=== PATIENT | female | born 1990 | race Two or more races ===

== ENCOUNTER 2017-01-08 22:10 | Emergency (ER) | payer MEDICAID ==
[~2017-01-08] VITALS: Ht 165.1 cm; Wt 54.4 kg
[2017-01-08 22:10] VITALS: BP 109/71
[2017-01-08] MEDS ORDERED: ONDANSETRON HCL/PF 4 MG/2 ML VIAL IM ONE (23:30)
[2017-01-08] MEDS ORDERED: ONDANSETRON HCL/PF 4 MG/2 ML VIAL ONE (23:53)
== END 2017-01-09 00:18 | disposition home or self-care (01) ==
LOC: ER 22:16
DX: K52.9 Noninfective gastroenteritis and colitis, unspecified (principal)
CPT/HCPCS: 84703; 96372; 99283; A4606; J2405; Z7610

== ENCOUNTER 2023-12-13 20:23 | Emergency (ER) | payer MEDICAID, OTHER ==
[~2023-12-13] VITALS: Ht 162.6 cm; Wt 63.5 kg
[2023-12-13] MEDS: IV NS 0.9% 1,000 ML BAG IV ONE (22:15)
[2023-12-13] MEDS ORDERED: KETOROLAC TROMETHAMINE 15 MG/ML VIAL ONE (22:22)
[2023-12-13] MEDS ORDERED: PANTOPRAZOLE 40 MG VIAL ONE (22:23)
[2023-12-13] MEDS ORDERED: METOCLOPRAMIDE HCL 10 MG/2 ML VIAL ONE (22:23)
[2023-12-13] MEDS ORDERED: FAMOTIDINE/PF INJ 20 MG/2 ML VIAL IV ONE (22:23)
[2023-12-13 22:27] LABS: BASOPHILS # (AUTO) 0.1 K/uL (0.0-0.2); BASOPHILS % (AUTO) 0.4 % (0.0-2.0); EOSINOPHILS % (AUTO) 0.1 % (0.0-6.0); HEMATOCRIT 39 % (33-45); LYMPHOCYTES % (AUTO) 18.1 % (20.0-44.0); MEAN CORPUSCULAR HEMOGLOBIN 30 PG (26.0-33.0); MEAN CORPUSCULAR HGB CONC 34 g/dl (31.0-36.0); MEAN CORPUSCULAR VOLUME 88 fL (82-100); MONOCYTES # (AUTO) 1.2 K/uL (0.1-1.30); MONOCYTES % (AUTO) 5.6 % (2.0-12.0); NEUTROPHILS # (AUTO) 16.6 K/uL (1.8-8.9); NEUTROPHILS % (AUTO) 75.8 % (43.0-81.0); PLATELET COUNT (AUTO) 228 K/uL (150-450); RED BLOOD CELL COUNT(AUTO) 4.37 MIL/uL (4.0-5.2); RED CELL DISTRIBUTION WIDTH 14.9 % (11.5-15.0); WHITE BLOOD COUNT (AUTO) 21.8 K/uL (4.3-11.0)
[2023-12-13] MEDS: KETOROLAC TROMETHAMINE 15 MG/ML VIAL IV ONE (22:30)
[2023-12-13] MEDS: PANTOPRAZOLE 40 MG VIAL IV ONE (22:35)
[2023-12-13] MEDS: FAMOTIDINE/PF INJ 20 MG/2 ML VIAL IV ONE (22:37)
[2023-12-13 22:46] LABS: CALCIUM, SERUM 9.5 mg/dL (8.5-10.1); POTASSIUM 3.2 mmol/L (3.5-5.1)
[2023-12-13 22:52] LABS: BILIRUBIN,DIRECT 0.2 mg/dL (0.0-0.2); BILIRUBIN,TOTAL 0.7 mg/dL (0.2-1.0); TOTAL PROTEIN, SERUM 7.8 g/dL (6.4-8.2)
[2023-12-13] MEDS: METOCLOPRAMIDE HCL 10 MG/2 ML VIAL IV ONE (23:00)
[2023-12-13] MEDS: AMOX/CLAVULANATE 875 MG TABLET PO ONE (23:10)
[2023-12-13] MEDS ORDERED: AMOX/CLAVULANATE 875 MG TABLET ONE (23:11)
[2023-12-13 23:17] VITALS: BP 120/67; TEMP 97.9; O2SAT 98
[2023-12-14] MEDS ORDERED: PANT40TA49 PO (00:11)
[2023-12-14] MEDS ORDERED: FAMO20TA80 PO (00:11)
[2023-12-14] MEDS ORDERED: POLY119P PO (00:11)
[2023-12-14] MEDS ORDERED: AMOX-430 PO (00:11)
== END 2023-12-14 00:45 | disposition home or self-care (01) ==
LOC: ER 20:27
DX: K29.70 Gastritis, unspecified, without bleeding (principal); K52.9 Noninfective gastroenteritis and colitis, unspecified
CPT/HCPCS: 99284; 96374; 96361; 96375; 71045; 85025; 80048; 83690; 80076; 36415; J3490; J2765; J7030; J2470; J1885